=== PATIENT | male | born 1945 | race Hispanic/Latino ===

== ENCOUNTER 2021-04-12 09:48 | Emergency (ER) | payer MEDICARE ==
[2021-04-12 13:07] LABS: Bilirubin,Urine NEG (Negative); Blood,Urine MOD (Negative); Color,Urine Amber (Yellow); Mucus,Urine 3+ /HPF; Urobilinogen,Urine < 2.0 mg/dL (<2.0)
[2021-04-12 13:10] LABS: WBC,Urine > 182.0 /HPF (0.0-6.0)
[2021-04-12] MEDS ORDERED: LIDOCAINE-MPF (1%) 10 MG/1 ML VIAL 5 ML INFILTRATI ONE (13:18)
--- NOTE | 2021-04-12 13:22 | Emergency Department Report ---
ED Male HPI - General Chief complaint: Urogenital-Male Stated complaint: BLOOD IN URINE Time Seen by Provider: 04/12/21 11:35 Source: patient Mode of arrival: Ambulatory Limitations: No Limitations - History of Present Illness Initial comments: 77-year-old male patient with a history of BPH presented to the emergency department for evaluation of a few day history of hematuria. Patient states that he self caths several times daily and over the past week he has had blood in his urine intermittently. He has also complained of right flank pain and frequency. He denies fever nausea vomiting change in appetite and abdominal pain. MD Complaint: dysuria -: Gradual, days(s) (6) Location: right flank Radiation: none Severity: mild Severity scale (0 -10): 3 Quality: aching Consistency: intermittent blood in urine, dysuria. denies: discharge, swelling, mass, urinary retention, fever, nausea/vomiting - Related Data Previous Rx's Medication Instructions Recorded Last Taken Type Ciprofloxacin HCl 500 mg PO BID 5 Days #10 tab 04/12/21 Unknown Rx Allergies Allergy/AdvReac Type Severity Reaction Status Date / Time No Known Allergies Allergy Unverified 04/12/21 11:15 ED Review of Systems ROS: Stated complaint: BLOOD IN URINE Other details as noted in HPI Comment: All other systems reviewed and negative Constitutional: no symptoms reported. denies: diaphoresis, fever, malaise, weakness Respiratory: no symptoms reported. denies: cough, shortness of breath Cardiovascular: denies: chest pain, palpitations Endocrine: no symptoms reported Gastrointestinal: denies: abdominal pain, nausea, vomiting, diarrhea, hematemesis, melena, hematochezia Genitourinary: dysuria, frequency, hematuria. denies: urgency, discharge, testicular pain Musculoskeletal: back pain Skin: denies: rash Neurological: denies: headache, weakness, abnormal gait ED Past Medical Hx - Past Medical History Previous Medical History?: Yes Additional medical history: prostate issues, self caths - Surgical History Past Surgical History?: No - Medications Home Medications: Home Medications Medication Instructions Recorded Confirmed Last Taken Type Ciprofloxacin HCl 500 mg PO BID 5 Days #10 tab 04/12/21 Unknown Rx ED Physical Exam - General Limitations: No Limitations General appearance: alert, in no apparent distress - Head Head exam: Present: atraumatic, normocephalic - Eye Eye exam: Present: normal appearance. Absent: conjunctival injection - Neck Neck exam: Present: normal inspection - Respiratory Respiratory exam: Present: normal lung sounds bilaterally. Absent: respiratory distress, wheezes, rales, chest wall tenderness - Cardiovascular Cardiovascular Exam: Present: regular rate - GI/Abdominal GI/Abdominal exam: Present: soft, normal bowel sounds. Absent: distended, tenderness, guarding - Extremities Exam Extremities exam: Present: normal inspection - Back Exam Back exam: Present: normal inspection, CVA tenderness (R). Absent: tenderness, CVA tenderness (L) - Neurological Exam Neurological exam: Present: alert, oriented X3 - Psychiatric Psychiatric exam: Present: normal affect, normal mood - Skin Skin exam: Present: warm, dry, intact ED Course Vital Signs 04/12/21 04/12/21 11:06 14:45 Temperature 98.2 F 98.6 F Pulse Rate 84 88 Respiratory 14 Rate Blood Pressure 124/74 Blood Pressure 148/89 [Right] O2 Sat by Pulse 98 Oximetry ED Medical Decision Making - Medical Decision Making 77-year-old male patient with a history of BPH presented to the emergency department for evaluation of a few day history of hematuria. Patient states that he self caths several times daily and over the past week he has had blood in his urine intermittently. He has also complained of right flank pain and frequency. He denies fever nausea vomiting change in appetite and abdominal pain. Urinalysis positive for leukocytes titrates and blood. Patient will be treated with one-time dose of Rocephin 1 g IM followed by a 5-day course of Cipro 500 mg twice a day. He was not encouraged to take medications as prescribed and follow-up with urology for further evaluation. He was advised to return to the emergency department if you develop fever or any worsening symptoms. Critical Care Time: No Critical care attestation.: If time is entered above; I have spent that time in minutes in the direct care of this critically ill patient, excluding procedure time. ED Disposition Clinical Impression: UTI (urinary tract infection) Qualifiers: Urinary tract infection type: acute cystitis Hematuria presence: with hematuria Qualified Code(s): N30.01 - Acute cystitis with hematuria Disposition: HOME / SELF CARE / HOMELESS Is pt being admited?: No Does the pt Need Aspirin: No Instructions: Clean Intermittent Catheterization, Male, Urinary Tract Infection, Adult, [id number] Additional Instructions: Take medications as prescribed. Follow up with urology for further evaluation if no improvement or worsening symptoms. Prescriptions: Ciprofloxacin HCl 500 mg PO BID 5 Days #10 tab Referrals: PRIMARY CARE, [Primary Care Provider] - 3-5 Days MICHELA RODRIGUEZ MD [Staff Physician] - 3-5 Days Time of Disposition: 13:22
[2021-04-12 14:47] VITALS: BP 148/89
== END 2021-04-12 17:34 | disposition home or self-care (01) ==
LOC: ED 09:48
DX: N39.0 Urinary tract infection, site not specified (principal)
CPT/HCPCS: 81001; 96372; 99283; J0696; J3490